=== PATIENT | male | born 1950 | race Caucasian/White ===

== ENCOUNTER 2018-12-16 19:29 | Emergency (ER) | payer BC ==
[~2018-12-16] VITALS: Ht 162.6 cm; Wt 53.5 kg
[2018-12-16 19:39] VITALS: BP_SYST 115
[2018-12-16] MEDS ORDERED: LORazepam 1 MG TABLET PO ONE (20:15)
[2018-12-16 20:30] VITALS: BP_SYST 115
== END 2018-12-16 20:30 | disposition home or self-care (01) ==
LOC: SED 19:29
DX: J84.10 Pulmonary fibrosis, unspecified (principal); Z99.12 Encounter for respirator [ventilator] dependence during power failure
CPT/HCPCS: 99282